=== PATIENT | female | born 1985 | race African-American/Black ===

== ENCOUNTER 2023-11-02 11:29 | Emergency (ER) | payer MEDICAID, OTHER ==
[~2023-11-02] VITALS: Ht 167.6 cm; Wt 70.0 kg
[2023-11-02 11:33] VITALS: O2SAT 99
[2023-11-02] MEDS ORDERED: ACETAMINOPHEN 325MG TABLET PO STA (12:20)
[2023-11-02] MEDS ORDERED: NAPR-681 PO (13:35)
[2023-11-02] MEDS: ACETAMINOPHEN 325MG TABLET PO NR (13:49)
[2023-11-02 13:55] VITALS: BP 128/78; PULSE 87; RESP 16; TEMP 98.3
== END 2023-11-02 13:55 | disposition home or self-care (01) ==
LOC: ER 11:41
DX: S50.12XA Contusion of left forearm, initial encounter (principal); M25.562 Pain in left knee; M79.641 Pain in right hand; V49.49XA Driver injured in collision with other motor vehicles in traffic accident, initial encounter; Y93.89 Activity, other specified; Y92.89 Other specified places as the place of occurrence of the external cause; Y99.8 Other external cause status
CPT/HCPCS: 73090; 73140; 99284